=== PATIENT | female | born 1995 | race African-American/Black ===

== ENCOUNTER 2016-07-20 22:58 | Emergency (ER) | payer SELFPAY ==
[~2016-07-20] VITALS: Ht 172.7 cm; Wt 52.3 kg
[~2016-07-20 22:58] MED LIST: CIPRO 500MG TA500 MG PO; FLAGYL500 MG PO; NORCO 325 MG-51 TAB PO; PREDNISONE20 MG PO; PROAIR HFA0.09 MG/AC IH; PROMETHAZINE12.5 M5 PO; ZITHROMAX Z PA250 MG PO
[2016-07-20 23:00] VITALS: TEMP 98.1
[2016-07-21 00:06] LABS: BASO % 0.2 % (0.0-2.0); EOS # 0.3 (0.0-0.7); EOS % 3.3 % (0-4.0); GRAN # 4.2 (1.4-6.5); GRAN % 45.5 % (42.2-75.2); LYMPH # 3.6 (1.2-3.4); LYMPH % 39.7 % (20.0-51.0); MEAN CELL VOLUME 94 fl (80.0-100.0); MEAN CORPUSCULAR HGB CONC 34 g/dl (33.0-37.0); MEAN PLATELET VOLUME 9.9 fl (7.4-10.4); MONO % 11.2 % (1.7-9.3); PLATELET COUNT 195 K/mm3 (130-400); RED BLOOD COUNT 3.56 M/mm3 (4.10-5.30); REDCELL DISTRIBUTION WIDTH-CV 12.4 % (11.5-14.5); WHITE BLOOD COUNT 9.1 K/mm3 (4.8-10.8)
[2016-07-21 00:11] LABS: HEMATOCRIT 33.5 % (37.0-47.0); HEMOGLOBIN 11.3 g/dl (12.5-16.0); MEAN CORPUSCULAR HEMOGLOBIN 32 pg (27.0-31.0)
[2016-07-21 00:16] LABS: ANION GAP 9 mmol/L (7-16); BLOOD UREA NITROGEN 9 mg/dL (7-17); CALCIUM 8.8 mg/dL (8.4-10.2); CARBON DIOXIDE 24 mmol/L (22-30); CHLORIDE 107 mmol/L (98-107); CREATININE, serum 0.73 mg/dL (0.52-1.25); GLUCOSE 105 mg/dL (74-106); POTASSIUM 3.2 mmol/L (3.4-5.0); SODIUM 140 mmol/L (137-145)
[2016-07-21 00:32] LABS: C-REACTIVE PROTEIN < 0.5 mg/dL (0.0-0.9); ERYTHROCYTE SEDIMENTATION RATE 1 mm/hr (0-20)
[2016-07-21] MEDS ORDERED: ULTRAM 50MG TAB50 MG PO (01:20)
[2016-07-21 01:42] LABS: PH 6 (5-8); URINE APPEARANCE Cloudy; URINE BACTERIA Rare /hpf; URINE BILIRUBIN Negative (NEGATIVE); URINE BLOOD Negative (NEGATIVE); URINE COLOR Yellow; URINE GLUCOSE Negative (NEGATIVE); URINE KETONE Negative (NEGATIVE); URINE UROBILINOGEN Negative (NEGATIVE)
[2016-07-21 02:22] VITALS: BP 129/62; PULSE 70
[2016-07-21 03:05] LABS: CHLAMYDIA/TRACH by PCR Female NOT DETECTED; NEISSERIA GON by PCR Female NOT DETECTED
== END 2016-07-21 02:33 | disposition home or self-care (01) ==
LOC: COL.ER 22:58
PROVIDERS: Emergency Medicine
DX: K08.89 Other specified disorders of teeth and supporting structures (principal); B37.3 Candidiasis of vulva and vagina; F17.210 Nicotine dependence, cigarettes, uncomplicated; D64.9 Anemia, unspecified
CPT/HCPCS: J1170; J1885; J2405; J7030

== ENCOUNTER 2016-08-22 03:07 | Emergency (ER) | payer SELFPAY ==
[~2016-08-22] VITALS: Ht 172.7 cm; Wt 50.0 kg
[~2016-08-22 03:07] MED LIST changes: +ULTRAM 50MG TAB50 MG PO
[2016-08-22 03:09] VITALS: BP 106/59; TEMP 98.7
[2016-08-22] MEDS ORDERED: AMOXICILLIN 50500 MG PO (03:47)
[2016-08-22 04:06] VITALS: PULSE 64
== END 2016-08-22 04:06 | disposition home or self-care (01) ==
LOC: COL.ER 03:07
DX: K08.89 Other specified disorders of teeth and supporting structures (principal); R05 Cough
CPT/HCPCS: J8540

== ENCOUNTER 2016-09-27 12:11 | Emergency (ER) | payer SELFPAY ==
[~2016-09-27] VITALS: Ht 172.7 cm; Wt 52.3 kg
[~2016-09-27 12:11] MED LIST changes: +AMOXICILLIN 50500 MG PO
[2016-09-27 12:16] VITALS: BP 121/67; TEMP 98.2
[2016-09-27 13:05] LABS: PH 6 (5-8); SQUAMOUS EPITHELIAL 0-2 /hpf; URINE APPEARANCE Clear; URINE BACTERIA None Seen /hpf; URINE BILIRUBIN Negative (NEGATIVE); URINE BLOOD 1+ (NEGATIVE); URINE COLOR Yellow; URINE GLUCOSE Negative (NEGATIVE); URINE KETONE Negative (NEGATIVE); URINE UROBILINOGEN Negative (NEGATIVE); URINE WBC 0-2 /hpf
[2016-09-27] MEDS ORDERED: FLEXERIL 1010 MG/TAB PO (13:38)
[2016-09-27 14:00] VITALS: PULSE 73
== END 2016-09-27 14:02 | disposition home or self-care (01) ==
LOC: COL.ER 12:11
PROVIDERS: Physician Assistant
DX: R19.7 Diarrhea, unspecified (principal); M62.830 Muscle spasm of back; J45.909 Unspecified asthma, uncomplicated; F17.210 Nicotine dependence, cigarettes, uncomplicated; R10.13 Epigastric pain; R11.0 Nausea; R05 Cough; R07.1 Chest pain on breathing

== ENCOUNTER 2017-04-01 11:00 | Emergency (ER) | payer OTHER ==
[~2017-04-01] VITALS: Ht 172.7 cm; Wt 50.0 kg
[~2017-04-01 11:00] MED LIST changes: +FLEXERIL 1010 MG/TAB PO
[2017-04-01 11:09] VITALS: BP 103/55; TEMP 98.1
[2017-04-01 14:08] VITALS: PULSE 73
== END 2017-04-01 14:09 | disposition home or self-care (01) ==
LOC: COL.ER 11:00
DX: M54.9 Dorsalgia, unspecified (principal); Z87.39 Personal history of other diseases of the musculoskeletal system and connective tissue
CPT/HCPCS: J1885

== ENCOUNTER 2017-04-26 19:07 | Emergency (ER) | payer OTHER ==
[~2017-04-26] VITALS: Ht 172.7 cm; Wt 52.3 kg
[2017-04-26 19:13] VITALS: BP 106/60; TEMP 99.3
[2017-04-26 22:25] VITALS: PULSE 67
== END 2017-04-26 22:26 | disposition home or self-care (01) ==
LOC: COL.ER 19:07
DX: K52.9 Noninfective gastroenteritis and colitis, unspecified (principal)
CPT/HCPCS: J1170; J2405; J2550; J7030

== ENCOUNTER 2017-04-27 21:15 | Emergency (ER) | payer OTHER ==
[~2017-04-27] VITALS: Ht 172.7 cm; Wt 48.9 kg
[2017-04-27 21:20] VITALS: BP 101/60; TEMP 98.1
[2017-04-27 23:06] LABS: BASO % 0.3 % (0.0-2.0); EOS # 0.1 (0.0-0.7); EOS % 1.1 % (0-4.0); GRAN # 9.2 (1.4-6.5); GRAN % 80.6 % (42.2-75.2); HEMATOCRIT 37.7 % (37.0-47.0); LYMPH # 1.2 (1.2-3.4); LYMPH % 10.2 % (20.0-51.0); MEAN CELL VOLUME 96 fl (80.0-100.0); MEAN CORPUSCULAR HEMOGLOBIN 33 pg (27.0-31.0); MEAN CORPUSCULAR HGB CONC 35 g/dl (33.0-37.0); MEAN PLATELET VOLUME 10.5 fl (7.4-10.4); MONO # 0.9 (0.1-0.6); MONO % 7.5 % (1.7-9.3); PLATELET COUNT 218 K/mm3 (130-400); RED BLOOD COUNT 3.94 M/mm3 (4.10-5.30); WHITE BLOOD COUNT 11.4 K/mm3 (4.8-10.8)
[2017-04-27 23:23] LABS: ADJUSTED CALCIUM 8.9 mg/dL (8.4-10.2); ALBUMIN 4.1 gm/dL (3.5-5.0); C-REACTIVE PROTEIN 4.2 mg/dL (0.0-0.9); CREATININE, serum 0.75 mg/dL (0.52-1.25); POTASSIUM 3.5 mmol/L (3.4-5.0); TOTAL PROTEIN 7.1 gm/dL (6.4-8.2)
[2017-04-28] MEDS ORDERED: ZOFRAN 4MG T4 MG/TAB PO ×2 (00:22→01:19)
[2017-04-28 01:35] VITALS: PULSE 79
== END 2017-04-28 01:38 | disposition home or self-care (01) ==
LOC: COL.ER 21:15
PROVIDERS: Emergency Medicine
DX: R11.2 Nausea with vomiting, unspecified (principal); R19.7 Diarrhea, unspecified
CPT/HCPCS: J1170; J2060; J2405; J2550; J7030; Q9967

== ENCOUNTER 2017-04-29 01:07 | Observation (INO) | payer OTHER ==
[~2017-04-29] VITALS: Ht 172.7 cm; Wt 51.4 kg
[~2017-04-29 01:07] MED LIST changes: +ZOFRAN 4MG T4 MG/TAB PO
[2017-04-29 02:02] LABS: BASO % 0.3 % (0.0-2.0); EOS # 0.1 (0.0-0.7); EOS % 1.4 % (0-4.0); GRAN # 7.4 (1.4-6.5); GRAN % 72.4 % (42.2-75.2); HEMATOCRIT 37.2 % (37.0-47.0); HEMOGLOBIN 12.8 g/dl (12.5-16.0); LYMPH # 1.6 (1.2-3.4); LYMPH % 16.1 % (20.0-51.0); MEAN CELL VOLUME 94 fl (80.0-100.0); MEAN CORPUSCULAR HEMOGLOBIN 33 pg (27.0-31.0); MEAN CORPUSCULAR HGB CONC 34 g/dl (33.0-37.0); MEAN PLATELET VOLUME 10.1 fl (7.4-10.4); MONO % 9.6 % (1.7-9.3); PLATELET COUNT 203 K/mm3 (130-400); RED BLOOD COUNT 3.94 M/mm3 (4.10-5.30); WHITE BLOOD COUNT 10.1 K/mm3 (4.8-10.8)
[2017-04-29 02:19] LABS: ADJUSTED CALCIUM 8.8 mg/dL (8.4-10.2); ALBUMIN 4.2 gm/dL (3.5-5.0); BILIRUBIN,TOTAL 1.1 mg/dL (0.0-1.0); C-REACTIVE PROTEIN 2.7 mg/dL (0.0-0.9); CREATININE, serum 0.75 mg/dL (0.52-1.25); POTASSIUM 3.4 mmol/L (3.4-5.0); TOTAL PROTEIN 7.3 gm/dL (6.4-8.2)
[2017-04-29 04:37] VITALS: BP 111/55; PULSE 65; TEMP 98
[2017-04-29 06:43] LABS: COLLECTION METHOD CLEAN CATCH
[2017-04-29 06:55] LABS: BASO % 0.2 % (0.0-2.0); EOS # 0.2 (0.0-0.7); EOS % 2.1 % (0-4.0); GRAN # 5.6 (1.4-6.5); GRAN % 64.2 % (42.2-75.2); LYMPH % 22.5 % (20.0-51.0); MEAN CELL VOLUME 96 fl (80.0-100.0); MEAN CORPUSCULAR HGB CONC 34 g/dl (33.0-37.0); MEAN PLATELET VOLUME 10.3 fl (7.4-10.4); MONO % 10.9 % (1.7-9.3); PLATELET COUNT 205 K/mm3 (130-400); RED BLOOD COUNT 3.66 M/mm3 (4.10-5.30); WHITE BLOOD COUNT 8.8 K/mm3 (4.8-10.8)
[2017-04-29 06:56] LABS: HEMATOCRIT 35.1 % (37.0-47.0); HEMOGLOBIN 11.8 g/dl (12.5-16.0); MEAN CORPUSCULAR HEMOGLOBIN 32 pg (27.0-31.0)
[2017-04-29 07:02] LABS: MUCOUS Present /lpf; PH 6 (5-8); URINE APPEARANCE Clear; URINE BACTERIA Rare /hpf; URINE BILIRUBIN Negative (NEGATIVE); URINE BLOOD 2+ (NEGATIVE); URINE COLOR Yellow; URINE GLUCOSE Negative (NEGATIVE); URINE KETONE 2+ (NEGATIVE); URINE LEUKOCYTE ESTERASE Negative (NEGATIVE); URINE PROTEIN(semi-quant) 1+ (NEGATIVE); URINE RBC 20-50 /hpf; URINE UROBILINOGEN Negative (NEGATIVE)
[2017-04-29 07:03] LABS: CALCIUM 8.5 mg/dL (8.4-10.2); CREATININE, serum 0.68 mg/dL (0.52-1.25); POTASSIUM 3.6 mmol/L (3.4-5.0)
[2017-04-29 08:01] VITALS: BP 91/58; PULSE 67; TEMP 98.3
[2017-04-29 11:39] VITALS: BP 122/71; PULSE 81; TEMP 98.4
[2017-04-29 16:15] VITALS: BP 99/53; PULSE 77; TEMP 98.8
[2017-04-29 19:24] VITALS: BP 99/76; PULSE 69; TEMP 98.3
[2017-04-30 00:14] VITALS: BP 90/46; PULSE 59; TEMP 97.2
[2017-04-30 03:35] VITALS: BP 101/50; PULSE 63; TEMP 98.2
[2017-04-30 06:56] LABS: MEAN CELL VOLUME 96 fl (80.0-100.0); MEAN CORPUSCULAR HGB CONC 34 g/dl (33.0-37.0); MEAN PLATELET VOLUME 10.6 fl (7.4-10.4); PLATELET COUNT 204 K/mm3 (130-400); WHITE BLOOD COUNT 7.1 K/mm3 (4.8-10.8)
[2017-04-30 06:58] LABS: HEMATOCRIT 34.4 % (37.0-47.0); HEMOGLOBIN 11.6 g/dl (12.5-16.0); MEAN CORPUSCULAR HEMOGLOBIN 32 pg (27.0-31.0)
[2017-04-30 06:59] LABS: ADD PATHOLOGY DIFF REVIEW NO
[2017-04-30 07:06] LABS: CREATININE, serum 0.67 mg/dL (0.52-1.25); MAGNESIUM 1.6 mg/dL (1.6-2.3); POTASSIUM 3.4 mmol/L (3.4-5.0)
[2017-04-30 07:51] LABS: BAND 14 % (0-10); EOSINOPHIL 4 % (0-4); LYMPHOCYTE 28 % (20.0-51.0); NEUTROPHILS 44 % (42.0-75.2); PLATELET ESTIMATE NORMAL (NORMAL); TOTAL CELLS COUNTED 100
[2017-04-30 08:00] VITALS: BP 109/57; PULSE 56; TEMP 98.4
[2017-04-30 11:25] VITALS: BP 110/69; PULSE 81; TEMP 98.5
== END 2017-04-30 12:38 | disposition left against medical advice (07) ==
LOC: COL.ER 01:07 → MEDICAL 01:51
PROVIDERS: Emergency Medicine; Nurse Practitioner; Physician Assistant
DX: R10.13 Epigastric pain (principal); N39.0 Urinary tract infection, site not specified; E87.6 Hypokalemia; E83.42 Hypomagnesemia; F41.9 Anxiety disorder, unspecified; F32.9 Major depressive disorder, single episode, unspecified; Z87.891 Personal history of nicotine dependence
CPT/HCPCS: C9113; G0378; J0696; J1170; J1885; J2405; J2550; J3475; J3480; J7030

== ENCOUNTER 2018-06-09 18:45 | Emergency (ER) | payer SELFPAY ==
[~2018-06-09] VITALS: Ht 172.7 cm; Wt 50.0 kg
[2018-06-09 19:07] VITALS: TEMP 98.4
[2018-06-09 19:36] LABS: COLLECTION METHOD CLEAN CATCH
[2018-06-09 19:45] LABS: MUCOUS Present /lpf; PH 6 (5-8); SQUAMOUS EPITHELIAL 0-2 /hpf; URINE APPEARANCE Hazy; URINE BACTERIA None Seen /hpf; URINE BILIRUBIN Negative (NEGATIVE); URINE BLOOD 1+ (NEGATIVE); URINE COLOR Yellow; URINE GLUCOSE Negative (NEGATIVE); URINE KETONE Negative (NEGATIVE); URINE LEUKOCYTE ESTERASE Negative (NEGATIVE); URINE NITRATE Negative (NEGATIVE); URINE PROTEIN(semi-quant) Negative (NEGATIVE)
[2018-06-09 21:37] LABS: BASO % 0.2 % (0.0-2.0); EOS # 0.2 (0.0-0.7); EOS % 2.2 % (0-4.0); GRAN # 6.5 (1.4-6.5); GRAN % 63.5 % (42.2-75.2); HEMATOCRIT 37.8 % (37.0-47.0); HEMOGLOBIN 12.9 g/dl (12.5-16.0); LYMPH # 2.8 (1.2-3.4); LYMPH % 27.1 % (20.0-51.0); MEAN CELL VOLUME 97 fl (80.0-100.0); MEAN CORPUSCULAR HEMOGLOBIN 33 pg (27.0-31.0); MEAN CORPUSCULAR HGB CONC 34 g/dl (33.0-37.0); MEAN PLATELET VOLUME 10.5 fl (7.4-10.4); MONO # 0.7 (0.1-0.6); MONO % 6.8 % (1.7-9.3); PLATELET COUNT 234 K/mm3 (130-400); RED BLOOD COUNT 3.89 M/mm3 (4.10-5.30); REDCELL DISTRIBUTION WIDTH-CV 12.1 % (11.5-14.5)
[2018-06-09] MEDS ORDERED: NORCO 325 MG-51 TAB PO ×2 (21:40→21:46)
[2018-06-09 21:51] LABS: ALANINE AMINOTRANSFERASE 13 U/L (9-52); ALKALINE PHOSPHATASE 74 U/L (50-136); ANION GAP 4 mmol/L (7-16); AST,SGOT 22 U/L (15-37); BILIRUBIN,TOTAL 1.1 mg/dL (0.0-1.0); BLOOD UREA NITROGEN 11 mg/dL (7-17); CALCIUM 9.2 mg/dL (8.4-10.2); CARBON DIOXIDE 26 mmol/L (22-30); CHLORIDE 107 mmol/L (98-107); CREATININE, serum 0.75 mg/dL (0.52-1.25); GLUCOSE 91 mg/dL (74-106); POTASSIUM 4.1 mmol/L (3.4-5.0); SODIUM 137 mmol/L (137-145); TOTAL PROTEIN 7.1 gm/dL (6.4-8.2)
[2018-06-09 21:52] LABS: C-REACTIVE PROTEIN < 0.5 mg/dL (0.0-0.9)
[2018-06-09 22:00] VITALS: BP 123/66; PULSE 78
== END 2018-06-09 22:00 | disposition home or self-care (01) ==
LOC: COL.ER 18:45
PROVIDERS: Emergency Medicine; Physician Assistant
DX: S39.012A Strain of muscle, fascia and tendon of lower back, initial encounter (principal); S00.93XA Contusion of unspecified part of head, initial encounter; S80.01XA Contusion of right knee, initial encounter; S70.01XA Contusion of right hip, initial encounter; F90.9 Attention-deficit hyperactivity disorder, unspecified type; F41.9 Anxiety disorder, unspecified; V43.62XA Car passenger injured in collision with other type car in traffic accident, initial encounter
CPT/HCPCS: J1885; J2405; J7030; Q9967

== ENCOUNTER 2018-06-26 16:16 | Emergency (ER) | payer SELFPAY ==
[~2018-06-26] VITALS: Ht 172.7 cm; Wt 50.0 kg
[2018-06-26 17:04] LABS: COLLECTION METHOD CLEAN CATCH
[2018-06-26 17:15] LABS: MUCOUS Present /lpf; PH 6 (5-8); SQUAMOUS EPITHELIAL 0-2 /hpf; URINE APPEARANCE Clear; URINE BACTERIA None Seen /hpf; URINE BILIRUBIN Negative (NEGATIVE); URINE BLOOD 2+ (NEGATIVE); URINE COLOR Yellow; URINE GLUCOSE Negative (NEGATIVE); URINE KETONE Negative (NEGATIVE); URINE LEUKOCYTE ESTERASE Negative (NEGATIVE); URINE NITRATE Negative (NEGATIVE); URINE PROTEIN(semi-quant) Negative (NEGATIVE)
[2018-06-26] MEDS ORDERED: FLEXERIL 1010 MG/TAB PO (18:38)
[2018-06-26] MEDS ORDERED: FLAGYL500 MG PO (18:39)
[2018-06-26 19:01] VITALS: BP 113/62; PULSE 77; TEMP 98.2
== END 2018-06-26 19:02 | disposition home or self-care (01) ==
LOC: COL.ER 16:16
PROVIDERS: Emergency Medicine
DX: N76.0 Acute vaginitis (principal); B96.89 Other specified bacterial agents as the cause of diseases classified elsewhere; M25.511 Pain in right shoulder; M54.6 Pain in thoracic spine; F17.210 Nicotine dependence, cigarettes, uncomplicated
CPT/HCPCS: J1885

== ENCOUNTER 2018-07-21 20:42 | Emergency (ER) | payer SELFPAY ==
[~2018-07-21] VITALS: Ht 172.7 cm; Wt 51.4 kg
[2018-07-21 20:44] VITALS: BP 125/81; TEMP 98.7
[2018-07-21 21:16] LABS: COLLECTION METHOD CLEAN CATCH
[2018-07-21 21:19] LABS: BASO % 0.2 % (0.0-2.0); EOS # 0.2 (0.0-0.7); EOS % 2.6 % (0-4.0); GRAN # 5.9 (1.4-6.5); GRAN % 63.7 % (42.2-75.2); HEMATOCRIT 37.3 % (37.0-47.0); HEMOGLOBIN 12.6 g/dl (12.5-16.0); LYMPH # 2.3 (1.2-3.4); LYMPH % 24.9 % (20.0-51.0); MEAN CELL VOLUME 95 fl (80.0-100.0); MEAN CORPUSCULAR HEMOGLOBIN 32 pg (27.0-31.0); MEAN CORPUSCULAR HGB CONC 34 g/dl (33.0-37.0); MONO # 0.8 (0.1-0.6); MONO % 8.3 % (1.7-9.3); PLATELET COUNT 248 K/mm3 (130-400); RED BLOOD COUNT 3.91 M/mm3 (4.10-5.30)
[2018-07-21 21:23] LABS: MUCOUS Present /lpf; PH 5 (5-8); URINE APPEARANCE Clear; URINE BACTERIA None Seen /hpf; URINE BILIRUBIN Negative (NEGATIVE); URINE BLOOD 2+ (NEGATIVE); URINE COLOR Yellow; URINE GLUCOSE Negative (NEGATIVE); URINE KETONE Negative (NEGATIVE); URINE LEUKOCYTE ESTERASE Negative (NEGATIVE); URINE NITRATE Negative (NEGATIVE); URINE PROTEIN(semi-quant) Negative (NEGATIVE); URINE UROBILINOGEN >=4.0 mg/dL (NEGATIVE)
[2018-07-21 21:29] LABS: ALBUMIN 4.2 gm/dL (3.5-5.0); BILIRUBIN,TOTAL 1.2 mg/dL (0.0-1.0); C-REACTIVE PROTEIN 6.2 mg/dL (0.0-0.9); CALCIUM 9.3 mg/dL (8.4-10.2); CREATININE, serum 0.75 mg/dL (0.52-1.25); POTASSIUM 3.4 mmol/L (3.4-5.0); TOTAL PROTEIN 7.9 gm/dL (6.4-8.2)
[2018-07-21] MEDS ORDERED: ZOFRAN ODT4 MG PO (22:50)
[2018-07-21] MEDS ORDERED: NORCO 325 MG-51 TAB PO (22:50)
[2018-07-21 23:20] VITALS: PULSE 81
[2018-07-24] MEDS ORDERED: PROAIR HFA0.09 MG/AC IH (22:09)
== END 2018-07-21 23:25 | disposition home or self-care (01) ==
LOC: COL.ER 20:42
PROVIDERS: Emergency Medicine
DX: K52.9 Noninfective gastroenteritis and colitis, unspecified (principal); F17.210 Nicotine dependence, cigarettes, uncomplicated
CPT/HCPCS: J1885; J2405; J3010; J7030; Q9967

== ENCOUNTER 2018-07-24 19:54 | Emergency (ER) | payer SELFPAY | END 2018-07-24 22:55 | disposition home or self-care (01) | LOC: COL.ER 19:54 | DX: R10.84 Generalized abdominal pain (principal); K58.9 Irritable bowel syndrome, unspecified; F17.210 Nicotine dependence, cigarettes, uncomplicated ==

== ENCOUNTER → 2018-10-26 | Outpatient (CLI) | payer OTHER ==
[~2018-10-26] MED LIST changes: +ZOFRAN ODT4 MG PO
== END ==
LOC: COL.RAD 12:05
DX: M54.5 Low back pain (principal); M54.2 Cervicalgia; V89.2XXA Person injured in unspecified motor-vehicle accident, traffic, initial encounter

== ENCOUNTER 2019-03-01 04:52 | Emergency (ER) | payer SELFPAY ==
[~2019-03-01] VITALS: Wt 54.5 kg
[2019-03-01 05:00] VITALS: TEMP 98.7
[2019-03-01 05:08] LABS: COLLECTION METHOD CLEAN CATCH
[2019-03-01 05:30] LABS: PH 6 (5-8); URINE APPEARANCE Turbid; URINE BILIRUBIN Negative (NEGATIVE); URINE BLOOD 2+ (NEGATIVE); URINE GLUCOSE 1+ (NEGATIVE); URINE KETONE Trace (NEGATIVE); URINE LEUKOCYTE ESTERASE Trace (NEGATIVE); URINE NITRATE Negative (NEGATIVE); URINE PROTEIN(semi-quant) 2+ (NEGATIVE); URINE UROBILINOGEN Negative (NEGATIVE)
[2019-03-01 05:38] LABS: URINE COLOR Red
[2019-03-01 05:40] LABS: SQUAMOUS EPITHELIAL 0-2 /hpf; URINE RBC >50 /hpf
[2019-03-01 05:41] LABS: URINE BACTERIA Occasional /hpf
[2019-03-01] MEDS ORDERED: CEFTIN500 MG PO (05:58)
[2019-03-01] MEDS ORDERED: PYRIDIUM200 M1 PO (05:58)
[2019-03-01 06:52] VITALS: BP 103/66; PULSE 70
== END 2019-03-01 06:52 | disposition home or self-care (01) ==
LOC: COL.ER 04:52
PROVIDERS: Emergency Medicine
DX: N30.91 Cystitis, unspecified with hematuria (principal); F17.210 Nicotine dependence, cigarettes, uncomplicated
CPT/HCPCS: J0696

== ENCOUNTER 2019-05-21 15:41 | Emergency (ER) | payer BC ==
[~2019-05-21] VITALS: Ht 172.7 cm; Wt 51.3 kg
[~2019-05-21 15:41] MED LIST changes: +CEFTIN500 MG PO; +PYRIDIUM200 M1 PO
[2019-05-21 16:04] VITALS: BP 119/78; TEMP 98.4
[2019-05-21] MEDS ORDERED: ROBAXIN 75750 MG/TAB PO (17:02)
[2019-05-21] MEDS ORDERED: PREDNISONE20 MG PO (17:02)
[2019-05-21] MEDS ORDERED: NORCO 325 MG-51 TAB PO (17:02)
[2019-05-21 17:15] VITALS: PULSE 77
== END 2019-05-21 17:15 | disposition home or self-care (01) ==
LOC: COL.ER 15:41
DX: M54.6 Pain in thoracic spine (principal); Z87.891 Personal history of nicotine dependence

== ENCOUNTER 2019-06-03 15:40 | Emergency (ER) | payer BC ==
[~2019-06-03] VITALS: Ht 172.7 cm; Wt 52.3 kg
[~2019-06-03 15:40] MED LIST changes: +ROBAXIN 75750 MG/TAB PO
[2019-06-03 16:02] VITALS: BP 114/58; PULSE 90; TEMP 97.6
== END 2019-06-03 16:17 | disposition left against medical advice (07) ==
LOC: COL.ER 15:40
DX: M54.9 Dorsalgia, unspecified (principal); M25.561 Pain in right knee

== ENCOUNTER 2019-06-03 19:09 | Emergency (ER) | payer BC ==
[~2019-06-03] VITALS: Ht 172.7 cm; Wt 52.3 kg
[2019-06-03 19:20] VITALS: BP 103/64; TEMP 97.8
[2019-06-03 23:11] LABS: COLLECTION METHOD CLEAN CATCH
[2019-06-03 23:17] LABS: MUCOUS Present /lpf; PH 6 (5-8); SQUAMOUS EPITHELIAL 0-2 /hpf; URINE APPEARANCE Clear; URINE BACTERIA None Seen /hpf; URINE BILIRUBIN Negative (NEGATIVE); URINE BLOOD 1+ (NEGATIVE); URINE COLOR Yellow; URINE GLUCOSE Negative (NEGATIVE); URINE KETONE Negative (NEGATIVE); URINE LEUKOCYTE ESTERASE Negative (NEGATIVE); URINE NITRATE Negative (NEGATIVE); URINE PROTEIN(semi-quant) Negative (NEGATIVE); URINE UROBILINOGEN Negative (NEGATIVE)
[2019-06-04 00:40] VITALS: PULSE 72
== END 2019-06-04 00:40 | disposition home or self-care (01) ==
LOC: COL.ER 19:09
PROVIDERS: Physician Assistant
DX: G89.29 Other chronic pain (principal); M25.561 Pain in right knee; M54.5 Low back pain
CPT/HCPCS: J2270; L1846

== ENCOUNTER 2019-06-23 22:56 | Emergency (ER) | payer BC ==
[~2019-06-23] VITALS: Ht 172.7 cm; Wt 52.3 kg
[2019-06-23 23:08] VITALS: BP 98/58; TEMP 98.5
[2019-06-24] MEDS ORDERED: PROAIR HFA0.09 MG/AC IH (01:01)
[2019-06-24 01:15] VITALS: PULSE 78
== END 2019-06-24 01:15 | disposition home or self-care (01) ==
LOC: COL.ER 22:56
DX: J45.901 Unspecified asthma with (acute) exacerbation (principal); G89.29 Other chronic pain; M25.561 Pain in right knee